=== PATIENT | female | born 1995 | race Caucasian/White ===

== ENCOUNTER → 2021-11-13 | Outpatient (CLI) | payer BC ==
--- NOTE | 2021-11-14 07:38 | US ---
EXAMINATION TYPE: US thyroid st tissue head/neck DATE OF EXAM: 11/13/2021 COMPARISON: NONE CLINICAL HISTORY: R22.1 LOCALIZED SWELLING, MASS AND LUMP, NECK. Pt states swelling right anterior ne ck, denies pain GLAND SIZE: Right Lobe: 6.2 x 2.2 x 1.8 cm Overall Parenchyma: heterogenous Left Lobe: 5.0 x 1.9 x 1.4 cm Overall Parenchyma: heterogeneous Isthmus Thickness: 0.5 cm NODULES RIGHT: # of nodules measured on right: 0 LEFT: # of nodules measured on left: 0 ISTHMUS: # of nodules measured in the isthmus: 0 Bilateral neck scanned, no evidence of lymphadenopathy. Bilateral thyroid gland enlarged, grossly het erogeneous. IMPRESSION: Thyroidomegaly with nonspecific bilateral glandular heterogeneity. No discrete solid or cystic nodule evident.
== END | disposition home or self-care (01) ==
LOC: RADUSWWP 16:36 → MERGE 17:00
PROVIDERS: ATTEND Family Medicine
DX: R22.1 Localized swelling, mass and lump, neck (principal); E04.2 Nontoxic multinodular goiter
CPT/HCPCS: 76536